=== PATIENT | female | born 1995 | race Two or more races ===

== ENCOUNTER 2024-04-05 20:51 | Observation (INO) | payer MEDICAID, SELFPAY ==
[2024-04-05 21:04] VITALS: BP 126/74; PULSE 92; RESP 100; RESP 15; TEMP 37.2
[2024-04-05 21:06] VITALS: TEMP 37.2; BMI 31.0
== END 2024-04-05 22:32 | disposition home or self-care (01) ==
PROVIDERS: Admitting Provider Specialist; Visit Provider Specialist
DX: O26.893 Other specified pregnancy related conditions, third trimester (principal); Z3A.38 38 weeks gestation of pregnancy; R10.2 Pelvic and perineal pain
CPT/HCPCS: 59025; 59899; 81514

== ENCOUNTER 2024-04-17 11:52 | Inpatient (IN) | payer MEDICAID, SELFPAY ==
[2024-04-17] VITALS (154 sets, daily range): BP systolic 94–181; BP diastolic 49–88; PULSE 71–136; RESP 16–18; TEMP 36.6–36.9; O2SAT 83–100; BMI 29.9
--- NOTE | 2024-04-17 12:29 | PD.LDHP ---
Documentation for date of: 04/17/24 OB Labor/Induct. HPI History of Present Illness History of present illness: H and P dictated on the stat line in [facility] #9: [id number] Meds Home Medications and Allergies Allergies Allergy/AdvReac Type Severity Reaction Status Date / Time No Known Allergies Allergy Verified 04/05/24 22:28 OB Exam Physical Exam Vital signs: Temp Pulse Resp Pulse Ox 97.9 F 104 H 16 98 04/17/24 12:22 04/17/24 12:22 04/17/24 12:22 04/17/24 12:22
--- NOTE | 2024-04-17 13:16 | XR_ITS ---
Examination: age Limited Technique: Limited transabdominal sonographic images pelvis Exam date and time: April 17, 2024 1439 hrs. Indications: Labor induction today, unknown size and dates Findings: Viable intrauterine gestation cephalic presentation spine maternal right Estimated gestational age 39 weeks 5 days Estimated weight 3612 g Cardiac motion 138 BPM Impression: Viable intrauterine gestation cephalic presentation Estimated weight 3612 g
[2024-04-17 13:30] LABS: Basophils % (Auto) 0 % (0-2.5); Eosinophils # (Auto) 0.1 Thou/mm3 (0.0-0.5); Eosinophils % (Auto) 1 % (0-10); Hematocrit 33.9 % (36.0-46.0); Hemoglobin 11.1 g/dL (12.0-16.0); Immature Granulocytes % (Auto) 1 % (0-0); Immature Granulocytes Auto 0.03 Thou/mm3 (0.00-0.00); Lymphocytes # (Auto) 1.3 Thou/mm3 (1.0-4.8); Lymphocytes % (Auto) 21 % (10-50); Mean Corpuscular HGB Conc 32.7 g/dl (31.0-37.0); Mean Corpuscular Hemoglobin 27.8 pg (25.0-35.0); Mean Corpuscular Volume 85 fL (80-100); Monocytes # (Auto) 0.3 Thou/mm3 (0.0-0.8); Monocytes % (Auto) 5 % (0-12); Neutrophils # (Auto) 4.5 Thou/mm3 (1.8-7.7); Neutrophils % (Auto) 72 % (37-80); Nucleated Red Blood Cell % 0 /100 WBC (0); Platelet Count 87 Thou/mm3 (140-440); RDW Standard Deviation 45.3 fL (36.4-46.3); White Blood Count 6.3 Thou/mm3 (3.6-11.0)
[2024-04-17] MEDS: DINOPROSTONE 10 MG VAG.SUPP VAGINAL ×2 (15:53→20:45)
[2024-04-17] MEDS: RINGERS LACTATED 1000 ML 1,000 ML 100 ML IV ×2 (19:52→21:43)
[2024-04-17 21:28] LABS: Basophils % (Auto) 0 % (0-2.5); Eosinophils # (Auto) 0.1 Thou/mm3 (0.0-0.5); Eosinophils % (Auto) 1 % (0-10); Hematocrit 32.6 % (36.0-46.0); Hemoglobin 10.6 g/dL (12.0-16.0); Immature Granulocytes % (Auto) 0 % (0-0); Immature Granulocytes Auto 0.03 Thou/mm3 (0.00-0.00); Lymphocytes # (Auto) 2.2 Thou/mm3 (1.0-4.8); Lymphocytes % (Auto) 24 % (10-50); Mean Corpuscular HGB Conc 32.5 g/dl (31.0-37.0); Mean Corpuscular Hemoglobin 27.7 pg (25.0-35.0); Mean Corpuscular Volume 85 fL (80-100); Monocytes # (Auto) 0.6 Thou/mm3 (0.0-0.8); Monocytes % (Auto) 7 % (0-12); Neutrophils # (Auto) 6.4 Thou/mm3 (1.8-7.7); Neutrophils % (Auto) 68 % (37-80); Nucleated Red Blood Cell % 0 /100 WBC (0); Platelet Count 173 Thou/mm3 (140-440); RDW Standard Deviation 45.5 fL (36.4-46.3); Red Blood Count 3.82 Miln/mm3 (4.00-5.20); White Blood Count 9.3 Thou/mm3 (3.6-11.0)
[2024-04-17 21:44] LABS: Fibrinogen 351 mg/dL (175-375); INR 0.9 (0.9-1.3); Partial Thromboplastin Time 22.8 Seconds (22.0-36.0); Prothrombin Time 10.3 Seconds (9.0-12.2)
[2024-04-17 22:00] LABS: Alanine Aminotransferase 8 U/L (10-49); Albumin, Serum 3.5 gm/dL (3.5-5.0); Anion Gap 8 (7-16); Aspartate Amino Transferase < 10 U/L (0-34); BUN/Creatinine Ratio 18 Ratio (12-20); Bilirubin,Total 0.3 mg/dL (0.3-1.2); Blood Urea Nitrogen 9 mg/dL (9-23); Calcium 8.8 mg/dL (8.3-10.6); Calcium (Corrected) 9.2 mg/dL (8.5-10.1); Carbon Dioxide 23.9 mMol/L (20.0-31.0); Chloride 109 mMol/L (98-107); Creatinine (Component) 0.5 mg/dL (0.6-1.3); Estimated Creatinine Clearance 158.2 mL/min (>60); Glucose 88 mg/dL (74-106); Osmolality,Calculated 278 (275-295); Potassium 3.8 mMol/L (3.4-5.1); Sodium 141 mMol/L (136-145); Total Protein 5.5 gm/dL (5.7-8.2); eGFR > 60 See Note
[2024-04-17 22:01] LABS: Albumin/Globulin Ratio 1.8 (1.2-2.2); Alkaline Phosphatase 142 U/L (46-116)
--- NOTE | 2024-04-17 22:21 | ESDS_ITS ---
DS: Providers Provider Date of admission: 04/17/24 11:52 Primary care physician: Physician No Primary/Family Admitting Provider: Colt Blake MD Attending Provider on Admission: Colt Blake MD Attending Provider on DC: Colt Blake MD Discharging Provider: Colt Blake MD DS: Diagnosis Problem List Completed Was Problem List Reviewed/Reconciled?: Yes Summary/Hosp Course Brief History: H and P dictated on the stat line in [facility] #9: [id number] Time Spent with Patient Time attestation: Total time spent providing and/or coordinating discharge services: Exam Vital Signs Temp Pulse Resp Pulse Ox O2 Del Method 97.9 F 104 H 18 98 Room Air 04/17/24 19:15 04/17/24 12:22 04/17/24 19:15 04/17/24 12:22 04/17/24 19:15 Discharge Plan Plan Patient Disposition: HOME (Self Care) Patient condition on transfer: Stable Prescriptions/Referrals Prescriptions/Med Rec: New ibuprofen 600 mg tablet 600 mg PO Q6H PRN (Reason: pain) Qty: 30 0RF Continued ferrous sulfate 325 mg (65 mg iron) tablet 325 mg PO BID Qty: 60 1RF Referrals: No Primary/Family,Physician [Primary Care Provider] - Patient/Caregiver Discharge Instructions Discharge Activity: activity as tolerated Other Discharge Activity Instructions:: Follow up office 6 weeks. Education Materials: After a Vaginal , Understanding Blues, Breast Care After Print Language: Malian Stand Alone Forms: Loni Award Info., Patient Portal Info Letter Discharge Order Discharge Orders: Discharge (Routine); Ordered 04/19/24 Ordered By: Colt Blake Planned Discharge Date 04/19/24
[2024-04-17] MEDS: BENZO/LANO/ALOE (Dermoplast) 60 GM CAN 1 SPRAY TOP (23:12)
[2024-04-18 00:08] VITALS: BP 121/56; PULSE 90
[2024-04-18 04:25] VITALS: BP 118/69; PULSE 85; RESP 18; TEMP 36.6; O2SAT 96
[2024-04-18] MEDS: IBUPROFEN TAB 400 MG TABLET 800 MG PO ×3 (04:28→20:31)
[2024-04-18 06:05] LABS: Basophils % (Auto) 0 % (0-2.5); Eosinophils % (Auto) 0 % (0-10); Hematocrit 30.7 % (36.0-46.0); Hemoglobin 9.8 g/dL (12.0-16.0); Immature Granulocytes % (Auto) 0 % (0-0); Immature Granulocytes Auto 0.04 Thou/mm3 (0.00-0.00); Lymphocytes # (Auto) 1.7 Thou/mm3 (1.0-4.8); Lymphocytes % (Auto) 15 % (10-50); Mean Corpuscular HGB Conc 31.9 g/dl (31.0-37.0); Mean Corpuscular Hemoglobin 27.3 pg (25.0-35.0); Mean Corpuscular Volume 86 fL (80-100); Monocytes # (Auto) 0.9 Thou/mm3 (0.0-0.8); Monocytes % (Auto) 8 % (0-12); Neutrophils # (Auto) 8.8 Thou/mm3 (1.8-7.7); Neutrophils % (Auto) 77 % (37-80); Nucleated Red Blood Cell % 0 /100 WBC (0); Platelet Count 165 Thou/mm3 (140-440); RDW Standard Deviation 46.9 fL (36.4-46.3); Red Blood Count 3.59 Miln/mm3 (4.00-5.20); White Blood Count 11.5 Thou/mm3 (3.6-11.0)
--- NOTE | 2024-04-18 06:57 | PD.LDDELS ---
Data (Vick) Data Hx Section: No : 1 Para: 0 Term: 0 : 0 : 0 Delivery Data (Vick) Labor Data ROM Date: 04/17/24 ROM Time: 21:56 Rupture Type: AROM Amniotic Fluid: Clear Delivery Data EDC: 04/14/24 EDC calculated by:: LMP/early US confirmation Labor Onset Stage 1 Date: 04/17/24 Labor Onset Stage 1 Time: 20:20 Labor Onset Stage 2 Date: 04/17/24 Labor Onset Stage 2 Time: 21:56 Delivery Date: 04/17/24 Delivery Time: 22:04 Gestational age (weeks): 40 Gestational age (days): 4 Placenta Delivery Date: 04/17/24 Placenta Delivery Time: 22:13 Delivered by: Colt Blake Delivery nurse: May Florence Other staff at delivery: Nurse Other staff at delivery: Nursery Nurse Other staff at delivery: Hemalatha Corral Other staff at delivery: Mary Morataya Delivery Method Delivery: Vaginal Delivery Type: Spontaneous Presentation: Vertex Position: OA Anesthesia Type Primary Anesthesia: None Placenta Placenta Delivery: Spontaneous Cord Sample: Cord Blood Obtained Lacerations #1: Perineal: 2nd degree Perineal repair Sutures used for repair: 3.0 Chromic EBL Estimated blood loss (ml): 200 Umbilical Cord Umbilical Vessels: 3 Nuchal Cord: x1 Body Cord: None Additional Procedures None Complications Complications: None Data (Vick) Data Infant Gender: Male Weight Grams: 3850 1 Minute Total: 8 5 Minute Total: 9
[2024-04-18] MEDS: FERROUS SULF 325 MG TABLET PO ×2 (07:59→20:32)
[2024-04-18] MEDS: ACETAMINOPHEN 325 MG TABLET 650 MG PO ×2 (07:59→15:43)
[2024-04-18 08:00] VITALS: BP 104/70; PULSE 82; RESP 16; TEMP 36.4; O2SAT 98
--- NOTE | 2024-04-18 08:42 | ESHP_ITS ---
RE: RODERICK CASEY : 1995 DATE OF ADMISSION: 04/17/2024 HISTORY OF PRESENT ILLNESS: This is a 28-year-old 2, para 1 with a due date of 04/13 with intrauterine at 40 weeks and 4 days who presents to labor and delivery for induction of labor. She denies any leaking or bleeding. She reports normal movement. She has occasional contractions. Her care was complicated by right pyelectasis with most recent maternal medicine ultrasound on 03/15 showing right pyelectasis of 7.4 mm at the overall growth of the 74th percentile with recommendation for a renal ultrasound after 72 hours of life. Other than that, the patient's care has been unremarkable. PAST MEDICAL HISTORY: Iron deficiency anemia, mild COVID-19 infection in 12/2020, migraine, headaches without aura. MEDICATIONS: 1. multivitamin one p.o. daily. 2. Ferrous sulfate 325 mg one p.o. every other day. SOCIAL HISTORY: She uses marijuana occasionally. She denies any alcohol use. FAMILY HISTORY: Mother and maternal grandmother, depression, anxiety, diabetes, and hypertension. OBSTETRIC HISTORY: In 01/2021, 40-week normal vaginal delivery 8 pound 3-ounce female with no complications. REVIEW OF SYSTEMS: She denies any headache, change in vision or right upper quadrant pain. She denies any chest pain, palpitations, shortness of breath, or lower extremity pain. PAST SURGICAL HISTORY: Denies. PHYSICAL EXAMINATION: VITAL SIGNS: Blood pressure is 110/70, heart rate 88, respirations 18, temperature 98.2. HEENT: Oropharynx and sclerae are clear. LUNGS: Clear to auscultation bilaterally. HEART: Regular rate and rhythm. ABDOMEN: Gravid term size consistent with estimated weight 40 weeks and four days. PELVIC: See RN notes. EXTREMITIES: Nontender. SKIN: No gross rashes or lesions. NEUROLOGIC: No focal deficit. ASSESSMENT AND PLAN: Intrauterine at 40 weeks and 4 days, post age induction of labor, right pyelectasis, anticipate spontaneous vaginal delivery. Informed consent was obtained. The patient was made aware of the risks, complications, alternatives, and benefits of the proposed procedure and she agrees. She is aware of the risk of operative vaginal delivery and delivery and agrees with these modes of delivery if indicated. DT: 09:05:47 TT: 11:50:00 Ref: [id number] - TID: [id number] MTDD
--- NOTE | 2024-04-18 09:10 | ESPR_ITS ---
RE: RODERICK CASEY : 1995 DATE OF SERVICE: 04/18/2024 S: day #1, the patient denies any problem or complaints. She is voiding. She is ambulating. She is tolerated regular diet. She is passing flatus. She denies any excessive vaginal bleeding. She denies any dizziness or lightheadedness. She denies any chest pain, palpitations, shortness of breath or lower extremity pain. O: Vital Signs: Blood pressure 118/69, heart rate 85, respirations 18, temperature 97.8, and pulse oximetry 96% on room air. Lungs: Clear to auscultation bilaterally. Heart: Regular rate and rhythm. Abdomen: Fundus is firm, nontender. Extremities: Nontender. Laboratory Data: Hemoglobin pre-delivery is 10.6 and post-delivery is 9.8, platelet count is 165,000. A: 1. day #1, status post spontaneous vaginal delivery. 2. Anemia, but hemodynamically stable. 3. 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 P: Discharge home when baby is clear. Discharge instructions given. Followup in the office in six weeks. DT: 07:00:33 TT: 09:08:00 Ref: [id number] - TID: [id number]
[2024-04-18 09:58] LABS: Syphilis Nonreactive (Nonreactive)
[2024-04-18 12:00] VITALS: BP 106/66; PULSE 91; RESP 18; TEMP 36.7; O2SAT 99
[2024-04-18 15:40] VITALS: BP 106/74; PULSE 97; RESP 18; TEMP 36.7; O2SAT 99
[2024-04-18 18:04] LABS: Amphetamine/Metham Scrn,Ur OB Negative (Negative); Benzoylecgonine Screen, Ur OB Negative (Negative); Opiate Screen,Urine OB Negative (Negative); THC Screen,Urine OB Negative (Negative)
[2024-04-18 19:59] VITALS: BP 107/69; PULSE 85; RESP 14; TEMP 36.4; O2SAT 98
[2024-04-19] MEDS: HYDROcodone/APAP 5/325 TABLET 1 TAB PO (00:35)
[2024-04-19 04:55] VITALS: BP 105/69; PULSE 76; RESP 14; TEMP 36.4; O2SAT 98
--- NOTE | 2024-04-19 07:40 | PD.LDPPPRG ---
Subjective Subjective Interval history: Patient denies any primary complaints Exam Vital Signs Temp Pulse Resp BP Pulse Ox O2 Del Method 97.5 F 76 14 105/69 98 Room Air 04/19/24 04:55 04/19/24 04:55 04/19/24 04:55 04/19/24 04:55 04/19/24 04:55 04/19/24 04:55 Routine Respiratory Exam Comments: Clear to auscultation bilaterally Routine Cardiovascular Exam Comments: Regular rate and rhythm Routine Abdominal Exam Comments: Nontender, fundus is firm Routine Extremities Exam Comments: Nontender or edema Objective Labs 04/18/24 05:06 04/17/24 20:25 Labs: Laboratory Results - last 24 hr 04/17/24 04/18/24 20:28 17:30 Urine Opiates Screen Negative U Amphetamin/Meth Scrn Negative U Cocaine Metab Screen Negative U Marijuana (THC) Screen Negative Syphilis Serology Nonreactive Assessment & Plan Assessment Comment Assessment comment: day #2 status post spontaneous vaginal delivery Anemia but hemodynamically stable Plan Comment Plan Comment: Discharge home follow-up in the office in 6 weeks Discharge instructions given Continue iron until 6 weeks Time Spent With Patient Time: Total time spent is greater than 50% in coordination of care (as documented) at patient's floor/unit and/or counseling patient:
[2024-04-19 07:50] VITALS: BP 107/70; PULSE 84; RESP 16; TEMP 36.8; O2SAT 97
[2024-04-19] MEDS: FERROUS SULF 325 MG TABLET PO (08:18)
[2024-04-19] MEDS: IBUPROFEN TAB 400 MG TABLET 800 MG PO (08:18)
--- NOTE | 2024-04-19 14:27 | PC.SS ---
SS staff received a referral to see patient for late to care. SS attempted visit at 9:30a.m. Patient had already been discharged.
== END 2024-04-19 09:25 | disposition home or self-care (01) | DRG 560 ==
LOC: S4SX 23:20 → S4NX 04-18 01:35
PROVIDERS: Admitting Provider Specialist; Visit Provider Specialist
DX: O48.0 Post-term pregnancy (principal); O69.81X0 Labor and delivery complicated by cord around neck, without compression, not applicable or unspecified; O70.1 Second degree perineal laceration during delivery; Z37.0 Single live birth; Z3A.40 40 weeks gestation of pregnancy; O35.EXX0 Maternal care for other (suspected) fetal abnormality and damage, fetal genitourinary anomalies, not applicable or unspecified; O99.02 Anemia complicating childbirth; O99.12 Other diseases of the blood and blood-forming organs and certain disorders involving the immune mechanism complicating childbirth; D69.6 Thrombocytopenia, unspecified; D50.9 Iron deficiency anemia, unspecified; Z86.16 Personal history of COVID-19
CPT/HCPCS: 36415; 59409; 76815; 80053; 80307; 81001; 85025; 85049; 85384; 85610; 85730; 86780; 86850; 86900; 86901; 94762; J2795; J3010; J7120; A9270